=== PATIENT | female | born 1995 | race Caucasian/White ===

== ENCOUNTER 2017-02-05 18:33 | Emergency (ER) | payer OTHER ==
--- NOTE | 2017-02-05 19:00 | ED ORDER SUMMARY ---
..... Patient: BJORN CHRISTENSEN OrderSheet [facility] VisitID: [id number] [address] [place] [address] 22y, F Registration Date/Time: 02/05/2017 ORDER SHEET Weight: 99.7 kg (stated) Allergies: No Known Drug Allergy GENERAL ORDERS: MEDICATION ORDERS: Doxycycline Hyclate PO 100 mg (NOW) (18:55 02/05/2017 Ronan Rosado) (Ack 18:57 JBoardlevitor R.N.) (18:59 AGUILARoarmarisabel R.N.) IV FLUIDS: ORDER SHEET NOTES: [Electronically signed by Julian Gamble R.N. (19:14 02/05/2017)] [Electronically signed by Venu Swanson Dr. (09:50 02/06/2017)] [Electronically locked/signed by Julian Gamble R.N. (19:14 02/05/2017)]
--- NOTE | 2017-02-05 19:00 | ED CLINICAL REPORT ---
Clinical Report - Physicians/Mid Levels [facility] [address] [place] [address] 02/05/2017 18:33 Patient: BJORN CHRISTENSEN Time Seen: 1845. Arrived- By private vehicle. Historian- patient. HISTORY OF PRESENT ILLNESS Chief Complaint: BOIL. This started today and is still present and worsening. It was gradual in onset and has been constant but is not gone now. It is described as painful. It has been located in the left axilla. No cause has been identified. No recent medication, insect bite or food exposure. Was not recently exposed to poison jeremy or poison oak. Similar symptoms previously: Once. Recent medical care: Not recently seen/assessed. REVIEW OF SYSTEMS No fever, difficulty breathing, nausea or vomiting. All systems otherwise negative, except as recorded above. PAST HISTORY See nurses notes. Tetanus immunization status is up-to-date. Additional Surgeries: no known surgeries. Medications: None. Allergies: No Known Drug Allergy. SOCIAL HISTORY Never smoker. No alcohol use or drug use. No recent travel. Is a local resident. PHYSICAL EXAM Appearance: Alert. Oriented X3. No acute distress. Eyes: Pupils equal, round and reactive to light. Conjunctivae and eyelids normal. ENT: Ears normal. Nose normal. Pharynx normal. Neck: Neck supple. Respiratory: No respiratory distress. Breath sounds normal. Chest nontender. Abdomen: Nontender. No organomegaly. Skin: (small area of induration which measures approximately 2 cm in largest diameter. No area of fluctuance noted. Small area of overlying cellulitis which is also 2 cm in largest Tavener these are located in the left axilla. No crepitus. No bony abnormalities. Hair follicles appear to be intact and other than apparent recent shaving, no other abnormalities noted.). Extremities: Normal external inspection. Extremities nontender. Neuro: Oriented X 3. No motor deficit. No sensory deficit. PROGRESS AND PROCEDURES Course of Care: The patient is a pleasant 22 yo female presenting for evaluation of abscess. Evidence of cellulitis surrounding the area. No signs of systemic involvement. Patient without signs of sepsis at this time. Patient appears nontoxic. Because the abscesses in the current position and early on, feel that antibiotic treatment would be best option at this point. Ill of resolution with antibiotics alone. Discussed with patient options if the abscess does not improve with antibiotics over the next few days. Encouraged warm compresses and return immediately for any worsening. Patient is a good outpatient candidate. Patient appears to be reliable. Discussed with patient workup, diagnosis, home care, follow-up, and return precautions. All questions have been answered. The patient expressed understanding of these instructions and was agreeable to them. Prior to patients discharge from the emergency department, and advised given. Patient reports improved symptoms. Patient is in no acute distress and is nontoxic. Examination continues to be benign. patient reports that she is currently not and not breast-feeding. Because of the abscesses located in theaxillary area, doxycycline was the antibiotic chosen. Adequate coverage of staph and strep with this particular antibiotic. CLINICAL IMPRESSION 02/05/2017 18:41 BP: 139/83. HR: 103. RR: 18. O2 saturation: 99%. Temp: 98.8 F. Pain level now: 8/10. Blood pressure normal. Oxygen saturation normal. Cellulitis (acute left axilla). Single deep abscess (acute left axilla). No incision and drainage. INSTRUCTIONS Warnings: GENERAL WARNINGS: Return or contact your physician immediately if your condition worsens or changes unexpectedly, if not improving as expected, or if other problems arise. Specifically return if pain, vomiting, bleeding, breathing difficulty or fever. worsening pain, worsening redness, or other concerns. Your Current Medications: CONTINUE TAKING THE FOLLOWING MEDICATIONS: None*. Prescription Medications: Doxycycline 100 mg: Take 1 capsule orally every 12 hours for 10 days. No refill. (Disp 20 caps) Follow-up: Return to the emergency department as needed. Follow up with your doctor in three days if not well. Reason for referral: recheck today's concerns. Summary of care provided to patient via paper. Screening today revealed the patient's blood pressure to be in the normal range. The patient should follow up with a primary care provider for blood pressure management. Understanding of the discharge instructions verbalized by patient. (Electronically signed by Venu Swanson Dr. 02/06/2017 9:50)
--- NOTE | 2017-02-05 19:00 | ED ORDER SUMMARY ---
..... Patient: BJORN CHRISTENSEN OrderSheet [facility] VisitID: [id number] [address] [place] [address] 22y, F Registration Date/Time: 02/05/2017 ORDER SHEET Weight: 99.7 kg (stated) Allergies: No Known Drug Allergy GENERAL ORDERS: MEDICATION ORDERS: Doxycycline Hyclate PO 100 mg (NOW) (18:55 02/05/2017 Ronan Rosado) (Ack 18:57 JBoardlevitor R.N.) (18:59 AGUILARoarmarisabel R.N.) IV FLUIDS: ORDER SHEET NOTES: [Electronically signed by Julian Gamble R.N. (19:14 02/05/2017)] [Electronically signed by Venu Swanson Dr. (09:50 02/06/2017)] [Electronically locked/signed by Julian Gamble R.N. (19:14 02/05/2017)]
--- NOTE | 2017-02-05 19:00 | ED NURSING NOTES ---
Clinical Report - Nurses [facility] [address] [place] [address] 02/05/2017 18:33 [id number] Triage time 18:41. Acuity: LEVEL 4. Chief Complaint: LEFT UPPER EXTREMITY PAIN. 18:42 02/05/17. 18:42 02/05/17. Alert. No acute distress. ( Left under arm pain.). SEPSIS SCREEN: Sepsis Screen. Negative (no infection suspected/documented). MARITZA COMA SCORE: Maritza Coma Scale: 15- eyes open spontaneously (4); best verbal response- oriented x 4 (5); best motor response- obeys commands (6). --18:44 Julian Gamble R.N. 18:41 02/05/17. BP: 139/83. HR: 103. RR: 18. O2 saturation: 99% on room air. Temp: 98.8 F (oral). Pain level now: 07/04. --18:44 Julian Gamble R.N. ( Left Axillary pain, started 5 days ago. Pt states this has occurred before in the past and it self resolved.). --18:49 Julian Gamble R.N. Weight: 99.7 kg stated. Height/Length: 63 inches Per Patient. BMI: 38.9. --18:42 Julian Gamble R.N. Medications None. --18:44 Julian Gamble R.N. Medication/allergy information source: the patient. --18:44 Julian Gamble R.N. Allergies No Known Drug Allergy. --18:44 Julian Gamble R.N. History Arrived by private vehicle. Historian: patient. Accompanied by family. Primary physician (NONE). 18:42 02/05/17. No injury occurred. This occurred (5 days ago). Treatment MEDICAID COLLECTION SPECIALIST: None. PAST MEDICAL HX: Tetanus status: up-to-date. Immunizations: up-to-date. Last normal menstrual period now. SOCIAL HX: Current every day light tobacco smoker (cigarette)- less than 1/2 a pack per day. History of heavy drug use: marijuana. No alcohol use. No infectious disease exposure. ABUSE ASSESSMENT: No report of abuse. FALL RISK ASSESSMENT: Fall risk assessment completed. No fall risk identified. NUTRITIONAL RISK ASSESSMENT: The nutritional risk assessment revealed no deficiencies. FUNCTIONAL ASSESSMENT: Functional assessment: no impairments noted. LEARNING NEEDS ASSESSMENT: The learning needs assessment revealed no barriers. SKIN INTEGRITY ASSESSMENT: Skin integrity risk assessment completed. No skin integrity risk identified. --18:44 Julian Gamble R.N. PROBLEMS: Conjunctivitis. Hypertension. --18:44 Julian Gamble R.N. ADDITIONAL SURGERIES: no known surgeries. Assessment 18:42 02/05/17. --18:44 Julian Gamble R.N. Interventions 18:42 02/05/17. 18:42 02/05/17. ID and allergy band on patient. To treatment room. --18:44 Julian Gamble R.N. PHYSICAL ASSESSMENT 18:45 02/05/17. Ambulatory to room. GENERAL / NEURO / PSYCH: Oriented X 4. Alert. Appears in no acute distress. EXTREMITIES: Neuro-vascular status intact to the extremity. No upper extremity edema. Skin is non-tender on the extremities. SKIN: Skin is warm and dry. --18:45 Julian Gamble R.N. 18:48 02/05/17. SKIN: ( Slight left Axillary redness noticed). --18:48 Julian Gamble R.N. NURSING PROGRESS NOTES 18:46 02/05/17. Patient gowned. Reassurance given. Two patient identifiers checked. Call light placed in reach. Side rails up x 2. Bed placed in lowest position. Brakes of bed on. Brakes of chair on. --18:46 Julian Gamble R.N. 18:46 02/05/17. Patient ready for evaluation- chart flagged and notification provided. --18:46 Julian Gamble R.N. 18:59 02/05/2017 DOXYCYCLINE HYCLATE PO 100 mg given. Allergies verified and confirmed 5 rights. --18:59 Julian Gamble R.N. DISPOSITION / DISCHARGE 19:11 02/05/17. Condition at departure: improved. No learning barriers present. Discharge instructions provided and reviewed with the patient and family. Reviewed warnings. Reviewed medication(s). Treatments reviewed. Patient and family verbalized understanding. Written instructions provided in Spanish. The patient was discharged by the physician. She was discharged home and accompanied by family. She left the Emergency Department ambulatory and via private vehicle. Family member driving. --19:11 Julian Gamble R.N. 19:10 02/05/17. BP: 129/88. HR: 90. HR. ED physician notified. RR: 18. O2 saturation: 99%. Temp: 97.8 F (oral). --19:11 Julian Gamble R.N. 19:11 02/05/17. --19:11 Julian Gamble R.N. 19:11 02/05/17. Departure time: 19:11. --19:12 Julian Gamble R.N. Locked/Released at 02/05/2017 19:14 by Julian Gamble R.N.
--- NOTE | 2017-02-05 19:00 | ED NURSING NOTES ---
Clinical Report - Nurses [facility] [address] [place] [address] 02/05/2017 18:33 [id number] Triage time 18:41. Acuity: LEVEL 4. Chief Complaint: LEFT UPPER EXTREMITY PAIN. 18:42 02/05/17. 18:42 02/05/17. Alert. No acute distress. ( Left under arm pain.). SEPSIS SCREEN: Sepsis Screen. Negative (no infection suspected/documented). MARITZA COMA SCORE: Maritza Coma Scale: 15- eyes open spontaneously (4); best verbal response- oriented x 4 (5); best motor response- obeys commands (6). --18:44 Julian Gamble R.N. 18:41 02/05/17. BP: 139/83. HR: 103. RR: 18. O2 saturation: 99% on room air. Temp: 98.8 F (oral). Pain level now: 07/04. --18:44 Julian Gamble R.N. ( Left Axillary pain, started 5 days ago. Pt states this has occurred before in the past and it self resolved.). --18:49 Julian Gamble R.N. Weight: 99.7 kg stated. Height/Length: 63 inches Per Patient. BMI: 38.9. --18:42 Jluian Gamble R.N. Medications None. --18:44 Julian Gamble R.N. Medication/allergy information source: the patient. --18:44 Julian Gamble R.N. Allergies No Known Drug Allergy. --18:44 Julian Gamble R.N. History Arrived by private vehicle. Historian: patient. Accompanied by family. Primary physician (NONE). 18:42 02/05/17. No injury occurred. This occurred (5 days ago). Treatment MARKETING STRATEGIST: None. PAST MEDICAL HX: Tetanus status: up-to-date. Immunizations: up-to-date. Last normal menstrual period now. SOCIAL HX: Current every day light tobacco smoker (cigarette)- less than 1/2 a pack per day. History of heavy drug use: marijuana. No alcohol use. No infectious disease exposure. ABUSE ASSESSMENT: No report of abuse. FALL RISK ASSESSMENT: Fall risk assessment completed. No fall risk identified. NUTRITIONAL RISK ASSESSMENT: The nutritional risk assessment revealed no deficiencies. FUNCTIONAL ASSESSMENT: Functional assessment: no impairments noted. LEARNING NEEDS ASSESSMENT: The learning needs assessment revealed no barriers. SKIN INTEGRITY ASSESSMENT: Skin integrity risk assessment completed. No skin integrity risk identified. --18:44 Julian Gamble R.N. PROBLEMS: Conjunctivitis. Hypertension. --18:44 Julian Gamble R.N. ADDITIONAL SURGERIES: no known surgeries. Assessment 18:42 02/05/17. --18:44 Julian Gamble R.N. Interventions 18:42 02/05/17. 18:42 02/05/17. ID and allergy band on patient. To treatment room. --18:44 Julian Gamble R.N. PHYSICAL ASSESSMENT 18:45 02/05/17. Ambulatory to room. GENERAL / NEURO / PSYCH: Oriented X 4. Alert. Appears in no acute distress. EXTREMITIES: Neuro-vascular status intact to the extremity. No upper extremity edema. Skin is non-tender on the extremities. SKIN: Skin is warm and dry. --18:45 Julian Gamble R.N. 18:48 02/05/17. SKIN: ( Slight left Axillary redness noticed). --18:48 Julian Gamble R.N. NURSING PROGRESS NOTES 18:46 02/05/17. Patient gowned. Reassurance given. Two patient identifiers checked. Call light placed in reach. Side rails up x 2. Bed placed in lowest position. Brakes of bed on. Brakes of chair on. --18:46 Julian Gamble R.N. 18:46 02/05/17. Patient ready for evaluation- chart flagged and notification provided. --18:46 Julian Gamble R.N. 18:59 02/05/2017 DOXYCYCLINE HYCLATE PO 100 mg given. Allergies verified and confirmed 5 rights. --18:59 Julian Gamble R.N. DISPOSITION / DISCHARGE 19:11 02/05/17. Condition at departure: improved. No learning barriers present. Discharge instructions provided and reviewed with the patient and family. Reviewed warnings. Reviewed medication(s). Treatments reviewed. Patient and family verbalized understanding. Written instructions provided in Kiswahili. The patient was discharged by the physician. She was discharged home and accompanied by family. She left the Emergency Department ambulatory and via private vehicle. Family member driving. --19:11 Julian Gamble R.N. 19:10 02/05/17. BP: 129/88. HR: 90. HR. ED physician notified. RR: 18. O2 saturation: 99%. Temp: 97.8 F (oral). --19:11 Julian Gamble R.N. 19:11 02/05/17. --19:11 Julian Gamble R.N. 19:11 02/05/17. Departure time: 19:11. --19:12 Julian Gamble R.N. Locked/Released at 02/05/2017 19:14 by Julian Gamble R.N.
--- NOTE | 2017-02-06 09:50 | ED MAR SUMMARY ---
..... Medication Administration Record [facility] [address] [address] Patient: BJORN CHRISTENSEN Visit ID: [id number] 22y, F Weight: 99.7 kg Height/Length: 63 in BMI: 38.9 ALLERGIES: No Known Drug Allergy Given 18:59 02/05/2017 Julian Gamble R.N. Medication Administered: DOXYCYCLINE HYCLATE [PO], Dose: 100 mg PO. Medication Ordered: Doxycycline Hyclate PO 100 mg (NOW).
--- NOTE | 2017-02-06 09:50 | ED MED RECONCILIATION SUMMARY ---
Patient: BJORN CHRISTENSEN Medication Reconciliation Report [facility] VisitID: [id number] [address] [place] [address] 22y, F Registration Date/Time: 02/05/2017 Weight: 99.7 kg Height/Length: 63 in. BMI: 38.9 ALLERGIES: No Known Drug Allergy The patient's Home Medications are listed below: NONE. The source(s) of the original Home Medication information: patient The following Medications were given to the patient in the Emergency Department: DOXYCYCLINE HYCLATE [PO] PO 100 mg, administered: 02/05/2017 6:59:00 PM The following Medications were prescribed to the patient: Doxycycline 100 mg: Take 1 capsule orally every 12 hours for 10 days. No refill.(Disp 20 caps) -- Venu Swanson Dr.
--- NOTE | 2017-02-06 09:50 | ED MAR SUMMARY ---
..... Medication Administration Record [facility] [address] [place] [address] Patient: BJORN CHRISTENSEN Visit ID: [id number] 22y, F Weight: 99.7 kg Height/Length: 63 in BMI: 38.9 ALLERGIES: No Known Drug Allergy Given 18:59 02/05/2017 Julian Gamble R.N. Medication Administered: DOXYCYCLINE HYCLATE [PO], Dose: 100 mg PO. Medication Ordered: Doxycycline Hyclate PO 100 mg (NOW).
--- NOTE | 2017-02-06 09:50 | ED MED RECONCILIATION SUMMARY ---
Patient: BJORN CHRISTENSEN Medication Reconciliation Report [facility] VisitID: [id number] [address] [place] [address] 22y, F Registration Date/Time: 02/05/2017 Weight: 99.7 kg Height/Length: 63 in. BMI: 38.9 ALLERGIES: No Known Drug Allergy The patient's Home Medications are listed below: NONE. The source(s) of the original Home Medication information: patient The following Medications were given to the patient in the Emergency Department: DOXYCYCLINE HYCLATE [PO] PO 100 mg, administered: 02/05/2017 6:59:00 PM The following Medications were prescribed to the patient: Doxycycline 100 mg: Take 1 capsule orally every 12 hours for 10 days. No refill.(Disp 20 caps) -- Venu Swanson Dr.
--- NOTE | 2017-02-06 09:50 | ED DISCHARGE INSTRUCTIONS ---
Patient: BJORN CHRISTENSEN General Instructions [facility] VisitID: [id number] [place] [address] 22y, F Registration Date/Time: 02/05/2017 02/05/2017 18:41 BP: 139/83. HR: 103. RR: 18. O2 saturation: 99%. Temp: 98.8 F. Pain level now: 8/10. Blood pressure normal. Oxygen saturation normal. Cellulitis (acute left axilla). Single deep abscess (acute left axilla). No incision and drainage. INSTRUCTIONS Warnings: GENERAL WARNINGS: Return or contact your physician immediately if your condition worsens or changes unexpectedly, if not improving as expected, or if other problems arise. Specifically return if pain, vomiting, bleeding, breathing difficulty or fever. worsening pain, worsening redness, or other concerns. Your Current Medications: CONTINUE TAKING THE FOLLOWING MEDICATIONS: None*. Prescription Medications: Doxycycline 100 mg: Take 1 capsule orally every 12 hours for 10 days. No refill. (Disp 20 caps) Follow-up: Return to the emergency department as needed. Follow up with your doctor in three days if not well. Reason for referral: recheck today's concerns. Summary of care provided to patient via paper. Screening today revealed the patient's blood pressure to be in the normal range. The patient should follow up with a primary care provider for blood pressure management. Understanding of the discharge instructions verbalized by patient. ADDITIONAL INFORMATION Cellulitis You have an infection of the skin known as cellulitis. This usually starts with a scrape, cut, insect bite, blister or other opening in the skin which becomes infected. This is a serious condition. It must be watched closely to be sure the infection is not spreading. With antibiotic treatment, the size of the red area will gradually shrink in size until the skin returns to normal. This will take 7-10 days. The red area should never increase in size once the antibiotic medicine has been started. Occasionally, an infection will be resistant to one antibiotic and another one will have to be used. Home Care: 1) Limit the use of the affected part, since excess movement can cause the infection to spread. 2) If the infection is on your leg, walk as little as possible during the first few days of the treatment. Keep your leg elevated while sitting. This will reduce swelling. 3) Take all of the antibiotic medicine exactly as directed until it is gone. Be careful not to miss any doses, especially during the first seven days. Follow Up with your doctor or this facility as directed. Check the infected area daily for the warning signs listed below. Get Prompt Medical Attention if any of the following occur: -- Spreading area of redness -- Increasing swelling or pain -- Appearance of pus or drainage -- Fever over 100.4 F (38.0 C) oral, or over 101.4 F (38.6 C) rectal, after two days on antibiotics Abscess (Antibiotic Treatment Only) An abscess (sometimes called a boil) occurs when bacteria get trapped under the skin and begin to grow. Pus forms inside the abscess as the body responds to the bacteria. An abscess can occur with an insect bite, ingrown hair, blocked oil gland, pimple, cyst, or puncture wound. In the early stages, redness and tenderness are the only symptoms. Sometimes, this stage can be treated with antibiotics alone. If the abscess does not respond to antibiotic treatment, it will need to be drained with a small cut, under local anesthesia. Home care The following will help you care for your abscess at home: Soak the wound in hot water or apply hot packs (small towel soaked in hot water) to the area for 20 minutes at a time. Do this three to four times a day. Apply antibiotic cream or ointment onto the skin 3-4 times a day, unless something else was prescribed. Some ointments include an antibiotic plus a local pain reliever. If your doctor prescribed antibiotics, do not stop taking this medication until you have finished the prescribed course or the doctor tells you to stop. You may use an [id number] pain medication to control pain, unless another pain medicine was prescribed. If you have chronic liver or kidney disease or ever had a stomach ulcer or GI bleeding, talk with your doctor before using these any of these. Follow-up care Follow up with your health care provider as advised by our staff. Look at your wound each day for the signs of worsening infection listed below. When to seek medical care Get prompt medical attention if any of the following occur: An increase in redness or swelling Red streaks in the skin leading away from the abscess An increase in local pain or swelling Fever of 100.4F (38C) or higher, or as directed by your health care provider Pus or fluid coming from the abscess Doxycycline Monohydrate Oral tablet What is this medicine? DOXYCYCLINE (dox angela dong) is a tetracycline antibiotic. It kills certain bacteria or stops their growth. It is used to treat many kinds of infections, like dental, skin, respiratory, and urinary tract infections. It also treats acne, Lyme disease, malaria, and certain sexually transmitted infections. How should I use this medicine? Take this medicine by mouth with a full glass of water. Follow the directions on the prescription label. It is best to take this medicine without food, but if it upsets your stomach take it with food. Take your medicine at regular intervals. Do not take your medicine more often than directed. Take all of your medicine as directed even if you think you are better. Do not skip doses or stop your medicine early. Talk to your maintenance shop welder regarding the use of this medicine in children. Special care may be needed. While this drug may be prescribed for children as young as 8 years old for selected conditions, precautions do apply. What side effects may I notice from receiving this medicine? Side effects that you should report to your doctor or health child care counselor as soon as possible: allergic reactions like skin rash, itching or hives, swelling of the face, lips, or tongue difficulty breathing fever itching in the rectal or genital area pain on swallowing redness, blistering, peeling or loosening of the skin, including inside the mouth severe stomach pain or cramps unusual bleeding or bruising unusually weak or tired yellowing of the eyes or skin Side effects that usually do not require medical attention (report to your doctor or health child care counselor if they continue or are bothersome): diarrhea loss of appetite nausea, vomiting What may interact with this medicine? antacids barbiturates control pills bismuth subsalicylate carbamazepine methoxyflurane other antibiotics phenytoin vitamins that contain iron warfarin What if I miss a dose? If you miss a dose, take it as soon as you can. If it is almost time for your next dose, take only that dose. Do not take double or extra doses. Where should I keep my medicine? Keep out of the reach of children. Store at room temperature, below 30 degrees C (86 degrees F). Protect from light. Keep container tightly closed. Throw away any unused medicine after the expiration date. Taking this medicine after the expiration date can make you seriously ill. What should I tell my health care provider before I take this medicine? They need to know if you have any of these conditions: liver disease long exposure to sunlight like working outdoors stomach problems like colitis an unusual or allergic reaction to doxycycline, tetracycline antibiotics, other medicines, foods, dyes, or preservatives or trying to get breast-feeding What should I watch for while using this medicine? Tell your doctor or health child care counselor if your symptoms do not improve. Do not treat diarrhea with over the counter products. Contact your doctor if you have diarrhea that lasts more than 2 days or if it is severe and watery. Do not take this medicine just before going to bed. It may not dissolve properly when you lay down and can cause pain in your throat. Drink plenty of fluids while taking this medicine to also help reduce irritation in your throat. This medicine can make you more sensitive to the sun. Keep out of the sun. If you cannot avoid being in the sun, wear protective clothing and use sunscreen. Do not use sun lamps or tanning beds/booths. control pills may not work properly while you are taking this medicine. Talk to your doctor about using an extra method of control. If you are being treated for a sexually transmitted infection, avoid sexual contact until you have finished your treatment. Your sexual partner may also need treatment. Avoid antacids, aluminum, calcium, magnesium, and iron products for 4 hours before and 2 hours after taking a dose of this medicine. If you are using this medicine to prevent malaria, you should still protect yourself from contact with mosquitos. Stay in screened-in areas, use mosquito nets, keep your body covered, and use an insect repellent. You have been given the following additional information: Cellulitis Abscess, Antiobiotic Treatment Only Doxycycline Monohydrate Oral tablet (Electronically signed by Venu Swanson Dr. 02/06/2017 9:50)
== END 2017-02-05 19:11 | disposition home or self-care (01) ==
LOC: ED SRH 18:33
DX: L03.112 Cellulitis of left axilla (principal)